=== PATIENT | male | born 1985 | race Caucasian/White ===

== ENCOUNTER 2018-08-04 18:58 | Emergency (ER) | payer MEDICAID, OTHER ==
[~2018-08-04] VITALS: Ht 177.8 cm; Wt 95.3 kg
--- NOTE | 2018-08-04 19:30 | NUR ---
DR SILVA INTO EVAL PATIENT
[2018-08-04] MEDS ORDERED: IBUPROFEN 600 MG TABLET PO ONE (19:45)
[2018-08-04] MEDS ORDERED: PANTOPRAZOLE SODIUM 40 MG TABLET.DR PO ONE ×2 (19:45→19:51)
[2018-08-04] MEDS ORDERED: IBUPROFEN 600 MG TABLET ONE (19:50)
--- NOTE | 2018-08-04 20:00 | NUR ---
Patient discharged to home in stable conditon WITH TAKING PATIENT HOME. Written and verbal after care instructions given. Patient verbalizes understanding of instructions. WALKED OUT OF ER WITH NO DISTRESS NOTED
[2018-08-04 20:03] VITALS: BP 118/78
== END 2018-08-04 20:04 | disposition home or self-care (01) ==
LOC: ER 18:58
DX: R51 Headache (principal); F43.9 Reaction to severe stress, unspecified
CPT/HCPCS: A4663